=== PATIENT | male | born 1960 | race Caucasian/White ===

== ENCOUNTER 2025-06-03 14:30 | Inpatient (IN) | payer OTHER ==
[~2025-06-03] VITALS: Ht 180.3 cm; Wt 80.3 kg
[2025-06-03] MEDS: NS (Normal Saline) 0.9% 1,000 ML IV ONE ×2 (14:50→18:10)
[2025-06-03 15:18] LABS: BASO # 0.0 10^3/uL (0.0-0.2); BASO % 0.2 % (0.0-1.0); EOS # 0.0 10^3/uL (0.0-0.5); EOS % 0.0 % (0.0-3.0); LYMPH # 0.3 10^3/uL (1.5-5.0); LYMPH % 5.7 % (24.0-44.0); MONO # 0.9 10^3/uL (0.0-0.8); MONO % 15.7 % (2.0-8.0); NEUTROPHILS # 4.4 10^3/uL (1.5-8.5); NEUTROPHILS % 78.0 % (36.0-66.0); PLATELET COUNT, AUTOMATED 180 10^3/uL (150-450)
[2025-06-03 15:55] LABS: CREATININE FOR GFR 1.28 MG/DL (0.70-1.30); GLOMERULAR FILTRATION RATE 62.5 (>49)
[2025-06-03 15:57] LABS: ALT/SGPT 17.0 U/L (7.0-40); AST/SGOT 38.0 U/L (<34); CALCIUM LEVEL 7.9 MG/DL (8.3-10.6); CARBON DIOXIDE LEVEL 21.0 MMOL/L (20-31); CHLORIDE LEVEL 101.0 MMOL/L (98-107); MAGNESIUM LEVEL 2.0 MG/DL (1.8-2.4); POTASSIUM SERUM 5.9 MMOL/L (3.5-5.1); SODIUM LEVEL 133.0 MMOL/L (136-145)
[2025-06-03] MEDS ORDERED: ISOVUE-370 76% 100 ML VIAL As Ordered ONE (16:19)
[2025-06-03] MEDS ORDERED: PATIROMER SORBITEX CALCIUM 8.4GM POWDER PACKET PO ONE (18:00)
[2025-06-03] MEDS ORDERED: URSO1TAB2 PO (18:04)
[2025-06-03] MEDS ORDERED: PANT40TA29 PO (18:04)
[2025-06-03] MEDS ORDERED: RIME75TA SL (18:04)
[2025-06-03] MEDS ORDERED: LEXA5TAB13 PO (18:04)
[2025-06-03] MEDS ORDERED: REXU1TAB4 PO (18:04)
[2025-06-03] MEDS ORDERED: PREG50CA3 PO (18:04)
[2025-06-03] MEDS ORDERED: LEVOTAB10 PO (18:04)
[2025-06-03] MEDS ORDERED: ROPI2TAB46 PO (18:04)
[2025-06-03] MEDS ORDERED: ELIQ5TAB PO (18:09)
[2025-06-03] MEDS ORDERED: MYCO250C PO (18:09)
[2025-06-03] MEDS ORDERED: ATOR1TAB19 PO (18:09)
[2025-06-03] MEDS ORDERED: PRED5TA PO (18:09)
[2025-06-03] MEDS ORDERED: STEG15TA PO (18:09)
[2025-06-03] MEDS ORDERED: ASPI81TA26 PO (18:09)
[2025-06-03] MEDS ORDERED: TACR1CAP3 PO (18:09)
[2025-06-03] MEDS ORDERED: TAMS-18 PO (18:09)
[2025-06-03] MEDS ORDERED: HOME MED LIST COMPLETE! XX SCH (18:15)
[2025-06-03] MEDS ORDERED: GLUCOSE 4 GM CHEW PO PRN (18:20)
[2025-06-03] MEDS ORDERED: DEXTROSE 50% 50 ML SYRINGE IV PRN (18:20)
[2025-06-03] MEDS ORDERED: GLUCAGON INJ 1 MG VIAL SC PRN (18:20)
[2025-06-03] MEDS ORDERED: IPRATROPIUM 0.5 MG/ALBUTEROL 2.5 MG INH SOL UD 3 ML NEB PRN (18:50)
[2025-06-03 18:53] LABS: ESTIMATED AVERAGE GLUCOSE 160.0 MG/DL (60-110)
[2025-06-03] MEDS ORDERED: NS (Normal Saline) 0.9% 1,000 ML IV ONE (19:00)
[2025-06-03] MEDS: IPRATROPIUM 0.5 MG/ALBUTEROL 2.5 MG INH SOL UD 3 ML NEB ONE (20:02)
[2025-06-03] MEDS: CALCIUM GLUCONATE 1,000 MG in DEXTROSE 5% (D5W) MINI-BAG PLU 100 ML IV ONE (20:07)
[2025-06-03] MEDS: MIDODRINE 5 MG TAB PO ONE (20:31)
[2025-06-03 20:52] VITALS: BP 128/82; TEMP 97.9; O2SAT 97
[2025-06-03] MEDS ORDERED: INSULIN LISPRO (NovoLOG) PER UNIT SC SCH (21:00)
[2025-06-03 21:05] VITALS: BP_SYST 122; BP_SYST 125; BP_SYST 131; BP_DIAS 72; BP_DIAS 84; BP_DIAS 87
[2025-06-03] MEDS: NS (Normal Saline) 0.9% 1,000 ML IV SCH (22:29)
[2025-06-03] MEDS: TACROLIMUS 1MG CAP PO SCH (22:30)
[2025-06-03] MEDS: MYCOPHENOLATE MOFETIL 250 MG CAP (J7517) PO SCH (22:30)
[2025-06-03] MEDS: guaiFENesin ER TABLET 600 MG TAB PO SCH (22:31)
[2025-06-03] MEDS: PREGABALIN 50 MG CAP PO SCH (22:31)
[2025-06-03] MEDS: APIXABAN 5 MG TAB PO SCH (22:32)
[2025-06-03 22:51] LABS: KETONE, URINE AUTO RFX TRACE mg/dL (NEGATIVE); LEUKOCYTE ESTERASE UR AUTO RFX NEGATIVE (NEGATIVE); NITRITE, URINE AUTO RFX NEGATIVE (NEGATIVE); RBC, URINE AUTO RFX 1 /HPF (0-3); SQUAM EPITHELIAL CELL UR AURFX 0 /HPF (0-6); WBC, URINE AUTO RFX 1 /HPF (0-3)
[2025-06-03 23:14] LABS: AMPHETAMINES LEVEL URINE NEGATIVE (NEGATIVE); BARBITURATES URINE NEGATIVE (NEGATIVE); BENZODIAZEPINES URINE NEGATIVE (NEGATIVE); CANNABINOIDS URINE NEGATIVE (NEGATIVE); COCAINE METABOLITE URINE NEGATIVE (NEGATIVE); METHADONE URINE NEGATIVE (NEGATIVE); OPIATES URINE NEGATIVE (NEGATIVE); PHENCYCLIDINE URINE NEGATIVE (NEGATIVE)
[2025-06-03 23:49] VITALS: TEMP 100.5
[2025-06-03 23:55] VITALS: BP 139/72; TEMP 100.5; O2SAT 95
[2025-06-04] VITALS (10 sets, daily range): BP systolic 106–131; BP diastolic 57–74; TEMP 97.7–101.2; O2SAT 92–97
[2025-06-04] MEDS: ACETAMINOPHEN *IV* 1,000 MG in IV 1 EA IV ONE (00:17)
[2025-06-04] MEDS: NS (Normal Saline) 0.9% 1,000 ML IV ONE (01:00)
[2025-06-04 05:38] LABS: BASO # 0.0 10^3/uL (0.0-0.2); BASO % 0.2 % (0.0-1.0); EOS # 0.0 10^3/uL (0.0-0.5); EOS % 0.5 % (0.0-3.0); LYMPH # 0.2 10^3/uL (1.5-5.0); LYMPH % 3.9 % (24.0-44.0); MONO # 0.7 10^3/uL (0.0-0.8); MONO % 12.7 % (2.0-8.0); NEUTROPHILS # 4.6 10^3/uL (1.5-8.5); NEUTROPHILS % 82.2 % (36.0-66.0); PLATELET COUNT, AUTOMATED 103 10^3/uL (150-450)
[2025-06-04 06:10] LABS: CALCIUM LEVEL 7.7 MG/DL (8.3-10.6); CARBON DIOXIDE LEVEL 22.0 MMOL/L (20-31); CHLORIDE LEVEL 107.0 MMOL/L (98-107); CREATININE FOR GFR 1.02 MG/DL (0.70-1.30); GLOMERULAR FILTRATION RATE 82.1 (>49); POTASSIUM SERUM 4.4 MMOL/L (3.5-5.1); SODIUM LEVEL 139.0 MMOL/L (136-145)
[2025-06-04] MEDS: ACETAMINOPHEN 325 MG TAB PO PRN (06:32)
[2025-06-04] MEDS ORDERED: INSULIN LISPRO (NovoLOG) PER UNIT SC SCH (07:30)
[2025-06-04] MEDS: MIDODRINE 5 MG TAB PO SCH (08:00)
[2025-06-04 08:12] LABS: ERYTHROCYTE SEDIMENTATION RATE 52 mm/hr (0-20)
[2025-06-04 08:34] LABS: C REACTIVE PROTEIN QUANTITATIV 12.95 MG/DL (<1.0)
[2025-06-04] MEDS ORDERED: ENTER DRUG NAME HERE (PATIENT'S OWN MED) PO SCH (09:00)
[2025-06-04] MEDS: DAPAGLIFLOZIN PROPANEDIOL 10 MG TABLET PO SCH (09:17)
[2025-06-04] MEDS: ASPIRIN 81 MG ENTERIC TABLET PO SCH (09:17)
[2025-06-04] MEDS: ESCITALOPRAM OXALATE 10 MG TABLET PO SCH (09:18)
[2025-06-04] MEDS: PANTOPRAZOLE 40MG TAB PO SCH (09:18)
[2025-06-04] MEDS: TAMSULOSIN 0.4 MG CAP PO SCH (09:19)
[2025-06-04] MEDS: ATORVASTATIN 10 MG TAB PO SCH (09:20)
[2025-06-04] MEDS: INSULIN LISPRO (NovoLOG) PER UNIT SC SCH ×2 (09:22→20:10)
[2025-06-04] MEDS: cefTRIAXone SOD 2 GM in DEXTROSE 5% (D5W) ADV/MINI-BAG 50 ML IV SCH (09:23)
[2025-06-05 04:01] VITALS: BP 129/81; TEMP 98.1; O2SAT 97
[2025-06-05 06:09] LABS: BASO # 0.0 10^3/uL (0.0-0.2); BASO % 0.3 % (0.0-1.0); EOS # 0.1 10^3/uL (0.0-0.5); EOS % 4.1 % (0.0-3.0); LYMPH # 0.3 10^3/uL (1.5-5.0); LYMPH % 9.2 % (24.0-44.0); MONO # 0.5 10^3/uL (0.0-0.8); MONO % 15.8 % (2.0-8.0); NEUTROPHILS # 2.1 10^3/uL (1.5-8.5); NEUTROPHILS % 70.3 % (36.0-66.0); PLATELET COUNT, AUTOMATED 101 10^3/uL (150-450)
[2025-06-05 06:31] LABS: CALCIUM LEVEL 7.6 MG/DL (8.3-10.6); CARBON DIOXIDE LEVEL 22 MMOL/L (20-31); CHLORIDE LEVEL 108 MMOL/L (98-107); CREATININE FOR GFR 0.89 MG/DL (0.70-1.30); GLOMERULAR FILTRATION RATE > 90.0 (>49); POTASSIUM SERUM 4.0 MMOL/L (3.5-5.1); SODIUM LEVEL 137 MMOL/L (136-145)
[2025-06-05 06:48] VITALS: BP 130/79; TEMP 97.2; O2SAT 96
[2025-06-05] MEDS ORDERED: CEFD1CAP9 PO (11:33)
[2025-06-05 12:00] VITALS: BP 128/68
[2025-06-05] MEDS ORDERED: cefTRIAXone SOD 1 GM in DEXTROSE 5% (D5W) ADV/MINI-BAG 50 ML IV SCH (14:00)
== END 2025-06-05 13:45 | disposition home or self-care (01) | DRG 720 ==
LOC: M ED 14:30 → CANBEDREQ 17:09 → M ED INP 17:31 → M PCU 20:18 → M ED INP 20:31 → M PCU 20:49
PROVIDERS: ADMIT General Practice; ATTEND General Practice
DX: A41.89 Other specified sepsis (principal); D61.818 Other pancytopenia; D84.821 Immunodeficiency due to drugs; Z94.4 Liver transplant status; E11.65 Type 2 diabetes mellitus with hyperglycemia; I44.1 Atrioventricular block, second degree; E87.1 Hypo-osmolality and hyponatremia; I65.22 Occlusion and stenosis of left carotid artery; E87.5 Hyperkalemia; K75.4 Autoimmune hepatitis; K57.90 Diverticulosis of intestine, part unspecified, without perforation or abscess without bleeding; E86.0 Dehydration; J06.9 Acute upper respiratory infection, unspecified; F32.A Depression, unspecified; Z86.73 Personal history of transient ischemic attack (TIA), and cerebral infarction without residual deficits; Z85.528 Personal history of other malignant neoplasm of kidney; Z79.01 Long term (current) use of anticoagulants; Z79.82 Long term (current) use of aspirin; Z79.899 Other long term (current) drug therapy; B97.89 Other viral agents as the cause of diseases classified elsewhere; B97.10 Unspecified enterovirus as the cause of diseases classified elsewhere; Z86.718 Personal history of other venous thrombosis and embolism

== ENCOUNTER 2025-07-01 10:39 | Observation (INO) | payer MEDICAID, OTHER ==
[~2025-07-01] VITALS: Ht 180.3 cm; Wt 80.5 kg
[~2025-07-01 10:39] MED LIST: ASPI81TA26 PO; ATOR1TAB19 PO; CEFD1CAP9 PO; ELIQ5TAB PO; LEVOTAB10 PO; LEXA5TAB13 PO; MYCO250C PO; PANT40TA29 PO; PRED5TA PO; PREG50CA3 PO; REXU1TAB4 PO; RIME75TA SL; ROPI2TAB46 PO; STEG15TA PO; TACR1CAP3 PO; TAMS-18 PO; URSO1TAB2 PO
[2025-07-01 11:55] LABS: BASO # 0.1 10^3/uL (0.0-0.2); BASO % 0.7 % (0.0-1.0); EOS # 0.0 10^3/uL (0.0-0.5); EOS % 0.4 % (0.0-3.0); LYMPH # 0.5 10^3/uL (1.5-5.0); LYMPH % 7.0 % (24.0-44.0); MONO # 1.1 10^3/uL (0.0-0.8); MONO % 15.9 % (2.0-8.0); NEUTROPHILS # 5.1 10^3/uL (1.5-8.5); NEUTROPHILS % 75.6 % (36.0-66.0); PLATELET COUNT, AUTOMATED 152 10^3/uL (150-450)
[2025-07-01 12:26] LABS: ALT/SGPT 13 U/L (7.0-40); AST/SGOT 13 U/L (<34); CALCIUM LEVEL 8.9 MG/DL (8.3-10.6); CARBON DIOXIDE LEVEL 24 MMOL/L (20-31); CHLORIDE LEVEL 101 MMOL/L (98-107); CK-MB VALUE MASS < 1.0 NG/ML (<3.6); CPK CREATINE PHOSPHOKINASE 50 U/L (46-171); CREATININE FOR GFR 1.21 MG/DL (0.70-1.30); GLOMERULAR FILTRATION RATE 66.9 (>49); MAGNESIUM LEVEL 1.8 MG/DL (1.8-2.4); POTASSIUM SERUM 4.5 MMOL/L (3.5-5.1); SODIUM LEVEL 136 MMOL/L (136-145)
[2025-07-01 12:42] LABS: INR 1.21
[2025-07-01 13:52] LABS: CK-MB VALUE MASS < 1.0 NG/ML (<3.6); CPK CREATINE PHOSPHOKINASE 57 U/L (46-171)
[2025-07-01] MEDS: NS (Normal Saline) 0.9% 1,000 ML IV ONE (15:35)
[2025-07-01] MEDS: NS (Normal Saline) 0.9% 1,000 ML IV SCH (17:47)
[2025-07-01] MEDS ORDERED: LEXA1TAB2 PO (17:58)
[2025-07-01] MEDS ORDERED: med rec comment (18:10)
[2025-07-01] MEDS ORDERED: HOME MED LIST COMPLETE! XX SCH (18:20)
[2025-07-01 18:22] LABS: KETONE, URINE AUTO RFX 1+ mg/dL (NEGATIVE); LEUKOCYTE ESTERASE UR AUTO RFX NEGATIVE (NEGATIVE); NITRITE, URINE AUTO RFX NEGATIVE (NEGATIVE); RBC, URINE AUTO RFX 0 /HPF (0-3); SQUAM EPITHELIAL CELL UR AURFX 0 /HPF (0-6); WBC, URINE AUTO RFX 0 /HPF (0-3)
[2025-07-01] MEDS ORDERED: MOM 30 ML SUSPENSION UDC PO PRN (20:55)
[2025-07-01] MEDS ORDERED: MAALOX 30 ML SUSP *UDC PO PRN (20:55)
[2025-07-01] MEDS: APIXABAN 5 MG TAB PO SCH (21:59)
[2025-07-01] MEDS: PREGABALIN 50 MG CAP PO SCH (21:59)
[2025-07-01] MEDS: TAMSULOSIN 0.4 MG CAP PO SCH (21:59)
[2025-07-01] MEDS: TACROLIMUS 1MG CAP PO SCH (22:00)
[2025-07-01] MEDS: DOCUSATE SODIUM 100 MG CAPSULE PO SCH (22:00)
[2025-07-01] MEDS: MYCOPHENOLATE MOFETIL 250 MG CAP (J7517) PO SCH (22:01)
[2025-07-01] MEDS ORDERED: GLUCAGON INJ 1 MG VIAL SC PRN (23:35)
[2025-07-01] MEDS ORDERED: GLUCOSE 4 GM CHEW PO PRN (23:35)
[2025-07-01] MEDS ORDERED: DEXTROSE 50% 50 ML SYRINGE IV PRN (23:35)
[2025-07-01 23:55] VITALS: BP 124/80; TEMP 101.8; O2SAT 95
[2025-07-02] VITALS (13 sets, daily range): BP systolic 78–130; BP diastolic 54–90; TEMP 97.5–101.7; O2SAT 84–96
[2025-07-02] MEDS: ACETAMINOPHEN *IV* 500 MG in IV 1 EA IV ONE (00:33)
[2025-07-02] MEDS: CEFEPIME HCL 2 GM in DEXTROSE 5% (D5W) ADV/MINI-BAG 50 ML IV ONE (00:53)
[2025-07-02] MEDS: ACETAMINOPHEN *IV* 1,000 MG in IV 1 EA IV PRN (06:39)
[2025-07-02 07:03] LABS: PLATELET COUNT, AUTOMATED 124 10^3/uL (150-450)
[2025-07-02 07:27] LABS: INR 1.32
[2025-07-02 07:28] LABS: ALT/SGPT 12.0 U/L (7.0-40); AST/SGOT 14.0 U/L (<34); CALCIUM LEVEL 8.6 MG/DL (8.3-10.6); CARBON DIOXIDE LEVEL 23.0 MMOL/L (20-31); CHLORIDE LEVEL 104.0 MMOL/L (98-107); CREATININE FOR GFR 1.06 MG/DL (0.70-1.30); GLOMERULAR FILTRATION RATE 78.4 (>49); MAGNESIUM LEVEL 1.7 MG/DL (1.8-2.4); POTASSIUM SERUM 4.4 MMOL/L (3.5-5.1); SODIUM LEVEL 141.0 MMOL/L (136-145)
[2025-07-02] MEDS: INSULIN LISPRO (NovoLOG) PER UNIT SC SCH (08:14)
[2025-07-02] MEDS: ESCITALOPRAM OXALATE 10 MG TABLET PO SCH (08:15)
[2025-07-02] MEDS: PANTOPRAZOLE 40MG VIAL IV SCH (08:15)
[2025-07-02] MEDS: ASPIRIN 81 MG ENTERIC TABLET PO SCH (08:16)
[2025-07-02] MEDS: MAG SULF 1GM/100ML (MAG RUN) 1 GM in IV 1 EA IV ONE (09:29)
[2025-07-02] MEDS: CEFEPIME HCL 2 GM in DEXTROSE 5% (D5W) ADV/MINI-BAG 50 ML IV SCH (12:08)
[2025-07-02] MEDS: LR 1,000 ML IV SCH (16:06)
[2025-07-02] MEDS ORDERED: ISOVUE-370 76% 100 ML VIAL As Ordered ONE (16:12)
[2025-07-03] VITALS (7 sets, daily range): BP systolic 100–135; BP diastolic 58–85; TEMP 97–97.7; O2SAT 91–95
[2025-07-03 06:47] LABS: PLATELET COUNT, AUTOMATED 107 10^3/uL (150-450)
[2025-07-03 07:19] LABS: ALT/SGPT 9 U/L (7.0-40); AST/SGOT 18 U/L (<34); CALCIUM LEVEL 8.2 MG/DL (8.3-10.6); CARBON DIOXIDE LEVEL 23 MMOL/L (20-31); CHLORIDE LEVEL 106 MMOL/L (98-107); CREATININE FOR GFR 0.89 MG/DL (0.70-1.30); GLOMERULAR FILTRATION RATE > 90.0 (>49); MAGNESIUM LEVEL 1.8 MG/DL (1.8-2.4); POTASSIUM SERUM 4.5 MMOL/L (3.5-5.1); SODIUM LEVEL 140 MMOL/L (136-145)
[2025-07-03 07:21] LABS: INR 1.14
[2025-07-03] MEDS: ACETAMINOPHEN 325 MG TAB PO PRN (10:05)
[2025-07-03] MEDS: MAG SULF 1GM/100ML (MAG RUN) 1 GM in IV 1 EA IV ONE (14:10)
[2025-07-04 03:53] VITALS: BP 115/70; TEMP 97; O2SAT 95
[2025-07-04 04:00] VITALS: BP_SYST 110; BP_SYST 115; BP_SYST 116; BP_DIAS 70
[2025-07-04 06:28] LABS: PLATELET COUNT, AUTOMATED 125 10^3/uL (150-450)
[2025-07-04 06:46] LABS: INR 1.08
[2025-07-04 06:51] LABS: ALT/SGPT < 9 U/L (7.0-40); AST/SGOT 9 U/L (<34); CALCIUM LEVEL 8.0 MG/DL (8.3-10.6); CARBON DIOXIDE LEVEL 25 MMOL/L (20-31); CHLORIDE LEVEL 105 MMOL/L (98-107); CREATININE FOR GFR 0.88 MG/DL (0.70-1.30); GLOMERULAR FILTRATION RATE > 90.0 (>49); MAGNESIUM LEVEL 1.8 MG/DL (1.8-2.4); POTASSIUM SERUM 4.0 MMOL/L (3.5-5.1); SODIUM LEVEL 140 MMOL/L (136-145)
[2025-07-04 12:00] VITALS: BP 117/75; TEMP 97.5; O2SAT 91
[2025-07-04] MEDS: FLUZONE VACCINE TRI PF(25-26) 0.5ML SYRINGE IM.IMMUN ONE (13:00)
[2025-07-04 16:35] VITALS: BP 129/76; TEMP 97.3; O2SAT 94
[2025-07-04 20:33] VITALS: BP 91/60; TEMP 97.3; O2SAT 96
[2025-07-05 04:00] VITALS: BP 123/74; TEMP 97.5; O2SAT 98
[2025-07-05 06:32] LABS: PLATELET COUNT, AUTOMATED 130 10^3/uL (150-450)
[2025-07-05 06:54] LABS: INR 1.01
[2025-07-05 07:00] LABS: ALT/SGPT < 9 U/L (7.0-40); AST/SGOT 9 U/L (<34); CALCIUM LEVEL 8.2 MG/DL (8.3-10.6); CARBON DIOXIDE LEVEL 25 MMOL/L (20-31); CHLORIDE LEVEL 106 MMOL/L (98-107); CREATININE FOR GFR 0.84 MG/DL (0.70-1.30); GLOMERULAR FILTRATION RATE > 90.0 (>49); MAGNESIUM LEVEL 1.7 MG/DL (1.8-2.4); POTASSIUM SERUM 4.2 MMOL/L (3.5-5.1); SODIUM LEVEL 141 MMOL/L (136-145)
[2025-07-05] MEDS: MAG SULF 1GM/100ML (MAG RUN) 1 GM in IV 1 EA IV ONE (10:09)
[2025-07-05] MEDS: CEFEPIME HCL 2 GM in DEXTROSE 5% (D5W) ADV/MINI-BAG 50 ML IV ONE (11:28)
[2025-07-05] MEDS ORDERED: MYCO250C PO (13:13)
[2025-07-05] MEDS ORDERED: CEFEPIME HCL 2 GM in DEXTROSE 5% (D5W) ADV/MINI-BAG 50 ML IV SCH (22:00)
== END 2025-07-05 13:57 | disposition home or self-care (01) ==
LOC: M ED 10:39 → M ED INP 10:40 → M MSPAV 23:55
PROVIDERS: ADMIT Student in an Organized Health Care Education/Training Program; ATTEND Student in an Organized Health Care Education/Training Program
DX: A41.9 Sepsis, unspecified organism (principal); K75.4 Autoimmune hepatitis; Z94.4 Liver transplant status; R50.9 Fever, unspecified; I95.0 Idiopathic hypotension; R00.0 Tachycardia, unspecified; R10.84 Generalized abdominal pain; R06.02 Shortness of breath; Z85.528 Personal history of other malignant neoplasm of kidney; E11.9 Type 2 diabetes mellitus without complications; Z96.41 Presence of insulin pump (external) (internal); I44.1 Atrioventricular block, second degree; Z86.79 Personal history of other diseases of the circulatory system; Z86.73 Personal history of transient ischemic attack (TIA), and cerebral infarction without residual deficits; K57.90 Diverticulosis of intestine, part unspecified, without perforation or abscess without bleeding; I65.22 Occlusion and stenosis of left carotid artery; F39 Unspecified mood [affective] disorder; G25.81 Restless legs syndrome; M54.2 Cervicalgia; G89.29 Other chronic pain; R51.9 Headache, unspecified; I81 Portal vein thrombosis; Z79.01 Long term (current) use of anticoagulants; Z90.49 Acquired absence of other specified parts of digestive tract; J30.1 Allergic rhinitis due to pollen; Z79.899 Other long term (current) drug therapy; Z79.82 Long term (current) use of aspirin; Z79.52 Long term (current) use of systemic steroids
CPT/HCPCS: 36415; 71045; 74177; 80048; 80053; 80076; 81001; 82550; 82553; 83605; 83735; 84145; 84484; 85025; 85027; 85610; 85730; 87040; 87486; 87581; 87633; 87798; 90471; 90656; 93005; 93041; 94760; 96361; 96365; 96366; 96367; 96368; 96375; 96376; 97165; 99285; J0131; J0136; J0692; J1815; J2470; J2765; J3475; J7507; J7512; J7517; Q9967

== ENCOUNTER 2025-08-06 14:51 | Emergency (ER) | payer MEDICARE, MEDICAID ==
[~2025-08-06] VITALS: Ht 165.1 cm; Wt 79.2 kg
[~2025-08-06 14:51] MED LIST changes: +LEXA1TAB2 PO; +med rec comment
[2025-08-06] MEDS ORDERED: ISOVUE-370 76% 100 ML VIAL As Ordered ONE (15:22)
[2025-08-06 15:26] LABS: BASO # 0.0 10^3/uL (0.0-0.2); BASO % 0.2 % (0.0-1.0); EOS # 0.0 10^3/uL (0.0-0.5); EOS % 0.0 % (0.0-3.0); LYMPH # 0.7 10^3/uL (1.5-5.0); LYMPH % 5.1 % (24.0-44.0); MONO # 1.8 10^3/uL (0.0-0.8); MONO % 14.2 % (2.0-8.0); NEUTROPHILS # 10.1 10^3/uL (1.5-8.5); NEUTROPHILS % 80.0 % (36.0-66.0); PLATELET COUNT, AUTOMATED 132 10^3/uL (150-450)
[2025-08-06] MEDS: ACETAMINOPHEN *IV* 1,000 MG in IV 1 EA IV ONE (15:42)
[2025-08-06 15:54] LABS: ALT/SGPT 14.0 U/L (7.0-40); AST/SGOT 18.0 U/L (<34); CALCIUM LEVEL 8.8 MG/DL (8.3-10.6); CARBON DIOXIDE LEVEL 16.0 MMOL/L (20-31); CHLORIDE LEVEL 96.0 MMOL/L (98-107); CK-MB VALUE MASS 1.6 NG/ML (<3.6); CREATININE FOR GFR 1.01 MG/DL (0.70-1.30); GLOMERULAR FILTRATION RATE 83.1 (>49); MAGNESIUM LEVEL 1.7 MG/DL (1.8-2.4); PHOSPHORUS LEVEL 2.7 MG/DL (2.4-5.1); POTASSIUM SERUM 4.6 MMOL/L (3.5-5.1); SODIUM LEVEL 133.0 MMOL/L (136-145)
[2025-08-06 15:56] LABS: FREE T4 1.06 NG/DL (0.89-1.76)
[2025-08-06 15:58] LABS: CPK CREATINE PHOSPHOKINASE 107.0 U/L (46-171); MB/CK RELATIVE INDEX 1.49 (< OR =4)
[2025-08-06 16:23] LABS: ABG BASE EXCESS -10.8 (-2.0-2.0); ABG HCO3 11.1 MMOL/L (22.0-26.0); ABG O2 SATURATION 97.6 % (95.0-99.0); ABG PARTIAL PRESSURE O2 99.8 mmHg (75.0-100.0); ABG STANDARD HCO3 16.1 MMOL/L. (22.0-26.0); ABG TOTAL CO2 11.7 MMOL/L (23.0-31.0); ABG pH (ARTERIAL) 7.407 UNITS (7.350-7.450)
[2025-08-06 16:29] LABS: ABG PARTIAL PRESSURE CO2 18.1 mmHg (35.0-45.0)
[2025-08-06] MEDS: PIPERACILLIN/TAZOBACTAM SOD 4.5 GM in DEXTROSE 5% (D5W) ADV/MINI-BAG 50 ML IV ONE (16:31)
[2025-08-06] MEDS: NS (Normal Saline) 0.9% 1,000 ML IV ONE (16:31)
[2025-08-06 16:41] LABS: INR 1.35
[2025-08-06 16:55] LABS: CK-MB VALUE MASS 1.2 NG/ML (<3.6)
[2025-08-06 16:56] LABS: CPK CREATINE PHOSPHOKINASE 89.0 U/L (46-171); MB/CK RELATIVE INDEX 1.34 (< OR =4)
[2025-08-06 16:59] LABS: KETONE, URINE AUTO RFX 2+ mg/dL (NEGATIVE); LEUKOCYTE ESTERASE UR AUTO RFX NEGATIVE (NEGATIVE); MUCUS, URINE RFX SMALL (NEGATIVE); NITRITE, URINE AUTO RFX NEGATIVE (NEGATIVE); RBC, URINE AUTO RFX 1 /HPF (0-3); SQUAM EPITHELIAL CELL UR AURFX 0 /HPF (0-6); WBC, URINE AUTO RFX 0 /HPF (0-3)
[2025-08-06] MEDS ORDERED: TAMS1CAP17 PO (17:00)
[2025-08-06] MEDS ORDERED: HOME MED LIST COMPLETE! XX SCH (17:00)
[2025-08-06] MEDS ORDERED: COLA100C5 PO (17:00)
[2025-08-06] MEDS: MAGNESIUM OXIDE 400 MG TAB PO ONE (17:17)
[2025-08-06] MEDS: VANCOMYCIN HCL 1,000 MG, VIAL MATE ADAPTER 1 EACH in NS 250 ML IV ONE (17:17)
[2025-08-06] MEDS: NS (Normal Saline) 0.9% 1,380 ML in IV 1 EA IV STA (18:00)
[2025-08-06 19:00] VITALS: BP 119/61; TEMP 99.5; O2SAT 97
== END 2025-08-06 19:15 | disposition short-term general hospital (02) ==
LOC: EEVIPCON 14:51 → M ED 14:51
DX: A41.9 Sepsis, unspecified organism (principal); R50.9 Fever, unspecified; I48.91 Unspecified atrial fibrillation; I45.81 Long QT syndrome; E11.9 Type 2 diabetes mellitus without complications; C64.9 Malignant neoplasm of unspecified kidney, except renal pelvis; Z86.73 Personal history of transient ischemic attack (TIA), and cerebral infarction without residual deficits; Z91.09 Other allergy status, other than to drugs and biological substances; Z79.01 Long term (current) use of anticoagulants; Z79.1 Long term (current) use of non-steroidal anti-inflammatories (NSAID); Z79.52 Long term (current) use of systemic steroids; Z79.899 Other long term (current) drug therapy
CPT/HCPCS: 36600; 70450; 71275; 72125; 74177; 80047; 80048; 80076; 81001; 82550; 82553; 82803; 83605; 83735; 84100; 84439; 84443; 84484; 85025; 85610; 85730; 87040; 87077; 87154; 87186; 87486; 87581; 87633; 87798; 93005; 93041; 94760; 96365; 96366; 96367; 96375; 99285; J0134; J2543; J3373; Q9967